=== PATIENT | female | born 1950 | race Caucasian/White ===

== ENCOUNTER 2025-01-10 07:42 | Day surgery (SDC) | payer MEDICARE, BC ==
--- NOTE | 2025-01-03 16:07 | ELECTROCARDIOGRAPH REPORT ---
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 TAY Wilkinson Measurements Intervals [place] Rate: 70 P: 69 [place]: 173 QRS: 28 QRSD: 107 T: 73 QT: 473 QTc: 511 Interpretive Statements Sinus rhythm Probable anteroseptal infarct, old Prolonged QT interval Electronically Signed On 01-03-2025 17:33:[address] TAY Wilkinson Please click the below link to view image of tracing.
[2025-01-10] VITALS (7 sets, daily range): BP systolic 131–153; BP diastolic 74–87; PULSE 70–77; RESP 13–16; TEMP 97.3; O2SAT 97–100
[~2025-01-10] VITALS: Ht 165.1 cm; Wt 52.8 kg
[2025-01-10] MEDS: clindamycin-Cleocin 900mg/D5W 50 ML IV ONE (05:30)
[~2025-01-10 07:42] MED LIST: ALPR0.255 PO; BIOT1CAP3 PO; BUPR-480 PO; BUPR-726 PO; LEVO125T PO; MULT-1249 PO; OSC500T PO
[2025-01-10] MEDS ORDERED: morphine 4 MG/ML inj SYRINge IV PRN (08:25)
[2025-01-10] MEDS ORDERED: labetalol 20mg/4ml (5mg/ml) syringe IV PRN (08:25)
[2025-01-10] MEDS ORDERED: fentaNYL/PF 50MCG/1 ML 2ML syringe IV PRN (08:25)
[2025-01-10] MEDS ORDERED: hydrALAZINE 20mg/ml inj. IV PRN (08:25)
[2025-01-10] MEDS ORDERED: ringers solution, lacted 1,000 ML IV SCH (08:25)
[2025-01-10] MEDS: ringers solution, lacted 1,000 ML IV SCH (08:49)
[2025-01-10] MEDS ORDERED: LIDOcaine 1% (10mg/ml)w/preservative inj. 20ml MDV ONE (08:54)
[2025-01-10] MEDS ORDERED: BUPIVAcaine/PF 2.5mg/ml (0.25%) 10ml vial ONE (08:54)
[2025-01-10] MEDS ORDERED: desflurane 240ml liquid inh. IH ONE (09:30)
[2025-01-10] MEDS ORDERED: fentaNYL/PF 50MCG/1 ML 2ML syringe ONE (09:42)
[2025-01-10] MEDS ORDERED: LIDOcaine 2% (20mg/ml) 5ml vial ONE (09:47)
[2025-01-10] MEDS ORDERED: propofol inj 0 ML IV ONE (09:47)
[2025-01-10] MEDS ORDERED: propofol inj 20 ML IV ONE (09:47)
[2025-01-10] MEDS ORDERED: ondansetron/PF 4mg/2ml inj ONE (09:48)
[2025-01-10] MEDS ORDERED: dexamethasone sod phosphate 4mg/ml inj. ONE (09:48)
[2025-01-10] MEDS ORDERED: acetaminophen 1,000mg/100ml IV 100 ML IV ONE (09:49)
[2025-01-10] MEDS: fentaNYL/PF 50MCG/1 ML 2ML syringe IV PRN (11:01)
--- NOTE | 2025-01-10 11:08 | OPERATIVE REPORT ---
Operative Report Providers to CC CC: KISHAN BARRERA MD ~ Date of Procedure: Jan 10, 2025 Pre-Operative Diagnosis: Left inguinal lymphadenopathy Post-Operative Diagnosis SAME as PRE-Op Procedure Performed Excisional biopsy of deep left inguinal lymph node Surgeon: Kishan Barrera MD FACS Podiatric Aide None Anesthesiologist: Shaan Sexton Type of Anesthesia: General Findings: Very large, 5 cm deep left inguinal lymph node Wound class I Complications None Prosthetics\Implants used: None Estimated Blood Loss: 10 cc Specimen Removed: Deep left inguinal lymph node (lymphoma protocol) Description of Procedure: Patient was brought to the operating room and identified by the nursing staff and the attending physician. Patient was placed supine and general anesthesia was induced. The left groin was prepped and draped in the standard sterile fashion at the preoperative marking site. There was palpable left inguinal lymp hadenopathy below the inguinal ligament. Local anesthetic was infiltrated along a planned line of incision. Scalpel was used to make an incision and the wound was deepened down through the subcutaneous tissues using electrocautery. The deep fascial layer was opened, exposing a very large deep left inguinal lymph node. This was mobilized and hemostatic clips were used to occlude both inflow and outflow lymphatic channels. Node was mobilized and excised. Node was so large that it cracked in the midportion and the specimen was sent as two pieces. There was some bleeding that was controlled with hemostatic clips. The wound was irrigated and hemostasis assured. Deep layers were closed with a running absorbable suture and the skin was closed in layers also with a absorbable suture. Dermabond was applied. Patient was awakened and taken to the postanesthesia care unit in stable condition. Counts repoted as correct: Yes KISHAN BARRERA MD Jan 10, 2025 11:08
[2025-01-10] MEDS: HYDROcodone/acetaminophen 5mg/325mg tablet PO PRN (11:19)
[2025-01-10] MEDS: ondansetron/PF 4mg/2ml inj IV PRN (11:36)
== END 2025-01-10 11:40 | disposition home or self-care (01) ==
LOC: PAS 07:42
PROVIDERS: ATTEND Surgery
DX: R59.1 Generalized enlarged lymph nodes (principal); R94.31 Abnormal electrocardiogram [ECG] [EKG]; E03.9 Hypothyroidism, unspecified; F41.9 Anxiety disorder, unspecified; F32.A Depression, unspecified; Z79.890 Hormone replacement therapy; Z79.899 Other long term (current) drug therapy; Z90.710 Acquired absence of both cervix and uterus; Z98.890 Other specified postprocedural states; Z88.0 Allergy status to penicillin
CPT/HCPCS: 38531; 82948; 93005; A4215; A4618; A7000; J0131; J1100; J2003; J2405; J2704; J3010; J3490; J7030; J7120; Z7506; Z7508; Z7512; Z7610